=== PATIENT | female | born 1980 | race Two or more races ===

== ENCOUNTER 2023-12-01 19:18 | Emergency (ER) | payer OTHER ==
[~2023-12-01] VITALS: Ht 157.5 cm; Wt 63.5 kg
[2023-12-01] MEDS ORDERED: NORFLEX100MG PO (21:47)
== END 2023-12-01 22:22 | disposition home or self-care (01) ==
LOC: ER 19:19
DX: S30.0XXA Contusion of lower back and pelvis, initial encounter (principal); V49.9XXA Car occupant (driver) (passenger) injured in unspecified traffic accident, initial encounter; Y93.89 Activity, other specified; Y92.413 State road as the place of occurrence of the external cause; Y99.9 Unspecified external cause status